=== PATIENT | male | born 1975 | race African-American/Black ===

== ENCOUNTER 2019-02-27 11:26 | Observation (INO) | payer OTHER ==
[~2019-02-27] VITALS: Ht 180.3 cm; Wt 97.6 kg
[2019-02-27 12:14] VITALS: Ht 180.3 cm; Wt 97.6 kg
[2019-02-27 12:15] VITALS: BP 129/82; PULSE 95; RESP 16
[2019-02-27] MEDS ORDERED: POLYMYXIN/BACITRACIN 1L IRRIG ONE (15:55)
[2019-02-27] MEDS ORDERED: NEOMYC/POLYMYX/BACIT 30 GM OINT ONE (16:12)
[2019-02-27] MEDS ORDERED: BUPIVACAINE 0.5% (SDV) 30 ML INJ ONE (16:12)
[2019-02-27] MEDS ORDERED: OXYCODONE/ACETAMINOPHEN (5/325) TAB PO PRN ×2 (16:30)
[2019-02-27] MEDS ORDERED: HYDROmorphONE 1 MG/5 ML IV SYRINGE IV PRN ×3 (16:30)
[2019-02-27] MEDS ORDERED: LIDOCAINE 2% (SDV) 5 ML INJ ONE (16:45)
[2019-02-27] MEDS ORDERED: HYDROmorphONE 2 MG/ML SYG ONE (16:45)
[2019-02-27] MEDS ORDERED: PROPOFOL 20 ML ONE (16:45)
[2019-02-27] MEDS ORDERED: DESFLURANE 15 MIN ONE (16:45)
[2019-02-27] MEDS ORDERED: ROCURONIUM 50 MG INJ ONE (16:45)
[2019-02-27] MEDS ORDERED: ROPIVACAINE 0.5 % 30 ML VIAL ONE ×2 (16:53→18:16)
[2019-02-27] MEDS ORDERED: ONDANSETRON 4 MG INJ ONE ×2 (16:58→19:04)
[2019-02-27] MEDS ORDERED: CEFAZOLIN 1 GM INJ ONE (16:58)
[2019-02-27] MEDS ORDERED: MIDAZOLAM 1 MG/ML 2 ML INJ ONE (16:59)
[2019-02-27] MEDS ORDERED: KETOROLAC 30 MG INJ ONE (16:59)
[2019-02-27] MEDS ORDERED: LABETALOL HCL 20MG INJ ONE ×2 (18:36→20:50)
[2019-02-27] MEDS ORDERED: SUGAMMADEX SODIUM 200 MG/2 ML VIAL IV ONE (18:44)
[2019-02-27 18:58] VITALS: BP 146/90; PULSE 99; RESP 18
[2019-02-27] MEDS ORDERED: morphine 2 MG INJ IV PRN (19:00)
[2019-02-27] MEDS ORDERED: KETOROLAC 30 MG INJ IV SCH (19:00)
[2019-02-27 22:19] VITALS: BP 124/77; PULSE 89; RESP 18
[2019-02-27] MEDS ORDERED: ACETAMINOPHEN 325 MG TAB PO PRN (23:00)
[2019-02-27] MEDS ORDERED: NACL 0.9% 3 ML SYG IV SCH (23:00)
[2019-02-27] MEDS ORDERED: HYDROCODONE/APAP (5/325) TAB PO PRN (23:00)
[2019-02-27] MEDS ORDERED: ONDANSETRON 4 MG INJ IV PRN (23:00)
[2019-02-27 23:35] VITALS: BP 113/67; PULSE 74; RESP 20
[2019-02-28] MEDS: HYDROCODONE/APAP (5/325) TAB PO PRN ×2 (03:22→08:53)
[2019-02-28 03:53] VITALS: BP 135/87; PULSE 86; RESP 20
[2019-02-28] MEDS ORDERED: ALPRAZOLAM 1 MG TAB PO ONE (04:00)
[2019-02-28] MEDS ORDERED: LORAZEPAM 2 MG INJ IV ONE (04:00)
[2019-02-28] MEDS ORDERED: ADENOSINE 3 MG/ML SYRINGE IV ONE (07:00)
[2019-02-28 08:02] VITALS: BP 115/69; PULSE 96; RESP 19
[2019-02-28] MEDS ORDERED: KETOROLAC 30 MG INJ IV STA (09:07)
[2019-02-28] MEDS ORDERED: morphine 4 MG/ML VIAL IV PRN (09:30)
[2019-02-28] MEDS ORDERED: HYDROmorphONE 1 MG/ML SYG IV ONE (09:30)
[2019-02-28 11:04] VITALS: BP 106/71; PULSE 73; RESP 19
[2019-02-28] MEDS ORDERED: IBUPROFEN 600 MG TAB PO SCH (17:00)
== END 2019-02-28 12:00 | disposition home or self-care (01) ==
LOC: SDS 11:26 → 6WM 21:53 → INTOOBSV 21:53 → SDS 22:42
PROVIDERS: ADMIT Internal Medicine; ATTEND Internal Medicine
DX: S83.511A Sprain of anterior cruciate ligament of right knee, initial encounter (principal); S83.281A Other tear of lateral meniscus, current injury, right knee, initial encounter; F41.9 Anxiety disorder, unspecified; X58.XXXA Exposure to other specified factors, initial encounter
CPT/HCPCS: 29881; 29888; 71045; 80053; 82306; 82550; 82553; 83735; 84439; 84443; 84484; 85025; 93005; 93306; C1762; J0690; J1170; J1885; J2250; J2270; J2405; J2795; Z7500; Z7512; Z7610; 96374; G0378